=== PATIENT | female | born 1955 | race Caucasian/White ===

== ENCOUNTER → 2024-08-31 15:28 | Outpatient (REF) | payer BC, SELFPAY | LOC: WDC 15:28 | PROVIDERS: ATTENDING PHYSICIAN Nurse Practitioner; FAMILY PHYSICIAN Internal Medicine | DX: Z12.31 Encounter for screening mammogram for malignant neoplasm of breast (principal) | CPT/HCPCS: 77063; 77067 ==

== ENCOUNTER 2025-07-05 06:37 | Day surgery (SDC) | payer OTHER, SELFPAY | END 2025-07-05 13:08 | disposition home or self-care (01) | LOC: GI 06:37 | PROVIDERS: ATTENDING PHYSICIAN Internal Medicine Gastroenterology | DX: Z12.11 Encounter for screening for malignant neoplasm of colon (principal); K57.30 Diverticulosis of large intestine without perforation or abscess without bleeding; D12.0 Benign neoplasm of cecum; D12.2 Benign neoplasm of ascending colon; D12.3 Benign neoplasm of transverse colon; Z86.0100 Personal history of colon polyps, unspecified | CPT/HCPCS: 45380; 88305 ==

== ENCOUNTER 2025-07-16 17:34 | Emergency (ER) | payer OTHER, SELFPAY ==
[2025-07-16 17:42] VITALS: BP 192/94
[2025-07-16 19:01] VITALS: BMI 21.6
--- NOTE | 2025-07-16 19:22 | ED.GENMED ---
History of Present Illness
General
Chief Complaint: Musculo-Skeletal Complaint
Time Seen by Provider: 07/16/25 18:42
History of Present Illness
History of Present Illness:
70-year-old female presents to the emergency department for evaluation of a right hand injury after a mechanical trip and fall. Landed on a closed fist. Small abrasion to the dorsum of the hand, some stiffness reported as well. No other injuries
noted
Past History
Past History
ED Past Medical History: Other (Long QT syndrome)
ED Past Surgical History: None
Social History
Personal:
Living: other (domestic Partner)
Employment: Employed
Review of Systems
Review of Systems
Allergies reviewed?: Yes
All Other Systems: ROS reviewed and negative except as documented in HPI and ROS
Phy Exam
Physical Exam
Physical Exam:
GEN: Well appearing, NAD, WDWN
HEENT: Oral mucosa moist, no scleral icterus
Cardiac: Regular rate
Lung: No respiratory distress, no tachypnea
MSK: Minor swelling of the right hand MCP joints 2 through 4, abrasion overlying the dorsum of the hand with no bleeding. Range of motion is essentially normal at all digits
Skin: Good color, no pallor or jaundice, no rashes
Neuro: AO x3, moves all extremities freely
Psych: Calm, cooperative
Course
Orders/Labs/Results
Orders:
Orders
07/16/25 17:47
CR Hand - Right Min 3 Views Urgent
Comment:
Reason For Exam: hand trauma
Vital Signs
Initial and Last Documented VS:
Initial Vital Signs
Temp Pulse Resp BP Pulse Ox
97.7 F 61 18 192/94 100
07/16/25 17:42 07/16/25 17:42 07/16/25 17:42 07/16/25 17:42 07/16/25 17:42
Last Documented Vital Signs
Temp Pulse Resp BP Pulse Ox
97.7 F 66 18 140/86 100
07/16/25 17:42 07/16/25 19:27 07/16/25 17:42 07/16/25 19:27 07/16/25 19:27
MDM/Problems Addressed
MDM/Problems Addressed:
X-rays independently interpreted by me are negative for fracture. Discussed supportive care
*Pulse Oximetry
SaO2: 99
Oxygen Mode of Delivery: Room air
Patient hypoxic: no
*Critical Care Note
Total Time (30-74mins, 75-104mins- exclusive of procedures): Not Applicable
ED Attending Note
-
Portions of this chart may have been created with voice recognition software.� Occasional wrong word or��sound alike� substitutions may have occurred due to the inherent limitations of voice recognition software.
Discharge Plan
Departure
Patient Disposition: Home (Routine Discharge)
Date of Disposition: 07/16/25
Time of Disposition: 19:23
Patient with high blood pressure during this ER visit?: No
Discharge Problem:
Sprain of hand, right
Instructions: Finger Sprain Exercises
Prescriptions:
No Action
prochlorperazine maleate 10 MG tablet
10 mg PO Q6HPRN PRN (Reason: for nausea and vomiting) Qty: 10 0RF
Referrals:
Yaneth Garnett MD [Family Provider, Internal Medicine]
Interventions
Interventions:
*Risk Screen - Suicide Last Done: 07/16/25 17:42
*General Assessment Last Done: 07/16/25 19:01
*Neglect/Abuse Screening Last Done: 07/16/25 17:42
*ED- Fall Risk Assessment Last Done: 07/16/25 17:42
*ED COVID-19 Vaccine History Last Done: 07/16/25 19:01
*ED Influenza Vaccine History Last Done: 07/16/25 19:01
*Nursing Disposition Last Done: 07/16/25 19:29
ED-Musculoskeletal Assessment Last Done: 07/16/25 19:01
Discharge Date and Time
Discharge Date/Time: 07/16/25 19:30
Print Language: AFGHAN
[2025-07-16 19:27] VITALS: BP 140/86
== END 2025-07-16 19:30 | disposition home or self-care (01) ==
LOC: EMR 17:34
PROVIDERS: EMERGENCY PHYSICIAN Emergency Medicine; FAMILY PHYSICIAN Internal Medicine
DX: S63.91XA Sprain of unspecified part of right wrist and hand, initial encounter (principal); W01.0XXA Fall on same level from slipping, tripping and stumbling without subsequent striking against object, initial encounter
CPT/HCPCS: 99283; 73130